=== PATIENT | female | born 1965 | race Caucasian/White ===

== ENCOUNTER → 2016-06-02 | Outpatient (CLI) | payer BC ==
[~2016-06-02] MED LIST: DAYPRO600 M1 PO; KEFLEX500 MG PO; MEDROL DOSEPAK4 MG PO
== END | disposition home or self-care (01) ==
LOC: RAD 13:15
DX: M79.672 Pain in left foot (principal)

== ENCOUNTER → 2016-06-14 | Outpatient (CLI) | payer BC | END | disposition home or self-care (01) | LOC: RAD 15:14 | DX: M79.672 Pain in left foot (principal) ==

== ENCOUNTER → 2016-12-15 | Outpatient (CLI) | payer OTHER | END | disposition home or self-care (01) | LOC: US 12-14 13:30 | DX: I65.23 Occlusion and stenosis of bilateral carotid arteries (principal) ==

== ENCOUNTER → 2016-12-21 | Outpatient (CLI) | payer OTHER | END | disposition home or self-care (01) | LOC: CARD 07:15 | DX: I51.7 Cardiomegaly (principal); R00.2 Palpitations ==

== ENCOUNTER → 2018-06-07 | Day surgery (SDC) | payer OTHER | END | disposition home or self-care (01) | LOC: SDC 06-04 09:30 | DX: Z12.11 Encounter for screening for malignant neoplasm of colon (principal); Z53.8 Procedure and treatment not carried out for other reasons ==

== ENCOUNTER → 2018-12-13 | Day surgery (SDC) | payer OTHER ==
[~2018-12-13] VITALS: Ht 170.1 cm; Wt 89.8 kg
[~2018-12-13] MED LIST changes: +CLARITIN-D 121 EACH PO; +VITAMIN D10000 UNIT PO
--- NOTE | ~2018-12-13 | PROC NOTE ---
[place], [place] PROCEDURE NOTE NAME: MIRLANDE KO UNIT #: [id number] ROOM: DOCTOR: DIALLO GUTIERREZ MD BIRTHDATE: [birth year] DOS: 12/13/2018 PREOPERATIVE DIAGNOSIS: Screening examination. POSTOPERATIVE DIAGNOSES: Sigmoid diverticulosis, sigmoid polyp (25 cm). PROCEDURE: Flexible sigmoidoscopy. ENDOSCOPIST: Diallo Gutierrez MD [facility] SUPERVISOR: YASIR. ANESTHESIA: MAC. INDICATIONS: This is a 53-year-old lady who is here for a screening colonoscopy. The procedure and its complications were explained to the patient in detail preoperatively. Complications that were discussed included but were not limited to, bleeding, colon perforation, and missed lesions. She agreed to proceed. DESCRIPTION OF PROCEDURE: After identifying the patient, the patient was brought to the endoscopy suite and placed in the left lateral position. After time-out procedure was called, IV sedation was administered by the anesthesia team and a digital rectal exam was performed. This was within normal limits. An adult colonoscope was now introduced into the anal canal and advanced sequentially into the rectum, sigmoid colon right up to 50 cm from the anal verge. Despite multiple attempts, the scope could not be advanced beyond this point. This was also tried after keeping the patient in the supine position. In order to avoid any complications, the scope was withdrawn. During the procedure of the withdrawal, sigmoid diverticulosis was identified as well as a small polyp at 25 cm, which was removed with the help of a biopsy forceps and sent for histopathological diagnosis. After hemostasis was confirmed, the scope was withdrawn. Based on these findings, the patient is recommended to have a barium enema in the near future and also possibly another colonoscopy in 3-5 years in order to complete the procedure and also to evaluate the polyp that was removed. These findings were discussed with the patient's family in the recovery room. [place], [place] PROCEDURE NOTE NAME: MIRLANDE KO Jey UNIT #: [id number] ROOM: DOCTOR: DIALLO GUTIERREZ MD BIRTHDATE: [birth year] Diallo Gutierrez MD CM:PROCNOTE:PROCEDURE NOTE [id number] DIALLO GUTIERREZ MD
[2018-12-13 07:25] VITALS: BP 114/75
[2018-12-13 08:48] VITALS: BP 137/80
[2018-12-13 08:58] VITALS: BP 145/79
[2018-12-13 09:18] VITALS: BP 139/83
== END | disposition home or self-care (01) ==
LOC: SDC 12-10 10:15
DX: Z12.11 Encounter for screening for malignant neoplasm of colon (principal); K63.5 Polyp of colon; K57.30 Diverticulosis of large intestine without perforation or abscess without bleeding; Z98.890 Other specified postprocedural states; Z90.711 Acquired absence of uterus with remaining cervical stump; Z88.2 Allergy status to sulfonamides

== ENCOUNTER → 2020-02-12 | Outpatient (CLI) | payer OTHER | END | disposition home or self-care (01) | LOC: CARD 02-06 12:00 | PROVIDERS: ATTEND Family Medicine | DX: I05.8 Other rheumatic mitral valve diseases (principal) ==

== ENCOUNTER → 2020-08-07 | Outpatient (CLI) | payer OTHER | END | disposition home or self-care (01) | LOC: RAD 11:36 | PROVIDERS: ATTEND Family Medicine | DX: M79.642 Pain in left hand (principal) ==

== ENCOUNTER → 2021-03-30 | Outpatient (CLI) | payer OTHER | LOC: CT 07:43 | PROVIDERS: ATTEND Family Medicine | DX: R10.9 Unspecified abdominal pain (principal); Z90.710 Acquired absence of both cervix and uterus ==

== ENCOUNTER → 2021-04-22 | Day surgery (SDC) | payer OTHER ==
[2021-04-19 13:08] VITALS: BP 133/66
[~2021-04-22] VITALS: Ht 170.1 cm; Wt 90.7 kg
[~2021-04-22] MED LIST changes: +COLACE100 MG PO; +CRESTOR20 M1 PO; +PERCOCET 5-3251 EACH PO; +ZOFRAN4 MG PO
[2021-04-22 09:52] VITALS: BP 124/80
[2021-04-22 13:05] VITALS: BP 116/56
[2021-04-22 13:20] VITALS: BP 111/59
[2021-04-22 13:35] VITALS: BP 134/77
[2021-04-22 13:48] VITALS: BP 128/72
[2021-04-22 14:05] VITALS: BP 134/73
== END | disposition home or self-care (01) ==
LOC: SDC 04-19 12:30
PROVIDERS: ATTEND Surgery
DX: R10.11 Right upper quadrant pain (principal); K36 Other appendicitis; Z90.89 Acquired absence of other organs; Z90.710 Acquired absence of both cervix and uterus; Z88.2 Allergy status to sulfonamides; Z79.899 Other long term (current) drug therapy; Z20.822 Contact with and (suspected) exposure to COVID-19

== ENCOUNTER → 2021-05-19 | Outpatient (CLI) | payer OTHER | END | disposition home or self-care (01) | LOC: RAD 09:49 | PROVIDERS: ATTEND Orthopaedic Surgery | DX: M25.511 Pain in right shoulder (principal); M24.811 Other specific joint derangements of right shoulder, not elsewhere classified ==

== ENCOUNTER → 2022-08-23 | Outpatient (CLI) | payer OTHER | END | disposition home or self-care (01) | LOC: RAD 13:24 | PROVIDERS: ATTEND Family Medicine | DX: M25.561 Pain in right knee (principal); M25.562 Pain in left knee ==

== ENCOUNTER → 2022-09-26 | Outpatient (CLI) | payer OTHER | END | disposition home or self-care (01) | LOC: MAMMO 01:41 | PROVIDERS: ATTEND Family Medicine | DX: Z12.31 Encounter for screening mammogram for malignant neoplasm of breast (principal); N64.9 Disorder of breast, unspecified; D24.2 Benign neoplasm of left breast ==

== ENCOUNTER → 2022-11-07 | Outpatient (CLI) | payer OTHER | END | disposition home or self-care (01) | LOC: RAD 10:42 | PROVIDERS: ATTEND Orthopaedic Surgery | DX: M17.0 Bilateral primary osteoarthritis of knee (principal); M25.462 Effusion, left knee; M25.461 Effusion, right knee; M79.89 Other specified soft tissue disorders; M25.572 Pain in left ankle and joints of left foot; M25.571 Pain in right ankle and joints of right foot ==

== ENCOUNTER 2022-12-07 06:14 | Emergency (ER) | payer OTHER ==
[~2022-12-07] VITALS: Ht 170.1 cm; Wt 101.6 kg
[2022-12-07 06:40] LABS: BASO % 0.4 % (0.0-1.0); EOS # 1.2 10*3/uL (0.0-0.4); EOS % 11.4 % (1.0-4.0); HEMATOCRIT 39.4 % (37.0-47.0); LYMPH # 2.4 10*3/uL (1.3-4.4); LYMPH % 23.6 % (27.0-41.0); MEAN CELL VOLUME 89.5 fl (81.0-99.0); MEAN CORPUSCULAR HGB 29.1 pg (27.0-31.0); MEAN CORPUSCULAR HGB CONC 32.5 g/dl (33.0-37.0); MEAN PLATELET VOLUME 8.9 fl (9.6-12.3); MONO # 0.8 10*3/uL (0.1-1.0); MONO % 7.5 % (3.0-9.0); NEUT # 5.7 10*3/uL (2.3-7.9); NEUT % 56.1 % (47.0-73.0); PLATELET COUNT AUTOMATED 330 10*3/uL (130-400); RED CELL DISTRI WIDTH 12.8 % (0-14.5); WHITE BLOOD COUNT 10.2 10*3/uL (4.8-10.8)
[2022-12-07 07:02] LABS: ALKALINE PHOSPHATASE 64 U/L (46-116); BUN 11 mg/dl (9-23); CHLORIDE 106 mmol/L (98-107); POTASSIUM 3.5 mmol/L (3.4-5.1); SGPT/ALT 17 U/L (10-49); TOTAL PROTEIN 5.9 gm/dL (6.0-8.0)
[2022-12-07] MEDS ORDERED: DULE1ARO1 INH (09:06)
== END 2022-12-07 10:30 | disposition home or self-care (01) ==
LOC: ED 06:14
PROVIDERS: Internal Medicine
DX: J06.9 Acute upper respiratory infection, unspecified (principal); Z88.2 Allergy status to sulfonamides; Z90.711 Acquired absence of uterus with remaining cervical stump; Z98.890 Other specified postprocedural states

== ENCOUNTER → 2022-12-19 | Outpatient (CLI) | payer OTHER ==
[~2022-12-19] MED LIST changes: +DULE1ARO1 INH
== END | disposition home or self-care (01) ==
LOC: CARD 00:57
PROVIDERS: ATTEND Family Medicine
DX: G45.9 Transient cerebral ischemic attack, unspecified (principal); R47.81 Slurred speech

== ENCOUNTER → 2022-12-21 | Outpatient (CLI) | payer OTHER | END | disposition home or self-care (01) | LOC: MRI 12-06 09:00 | PROVIDERS: ATTEND Family Medicine | DX: H74.8X1 Other specified disorders of right middle ear and mastoid (principal); G45.9 Transient cerebral ischemic attack, unspecified; R47.81 Slurred speech ==

== ENCOUNTER → 2022-12-31 | Outpatient (CLI) | payer OTHER | END | disposition home or self-care (01) | LOC: CT 00:52 | PROVIDERS: ATTEND Specialist | DX: J32.0 Chronic maxillary sinusitis (principal); J32.8 Other chronic sinusitis; J34.2 Deviated nasal septum; H74.8X3 Other specified disorders of middle ear and mastoid, bilateral ==

== ENCOUNTER → 2024-06-20 | Outpatient (CLI) | payer OTHER | END | disposition home or self-care (01) | LOC: MAMMO 02:56 | PROVIDERS: ATTEND Family Medicine | DX: Z12.31 Encounter for screening mammogram for malignant neoplasm of breast (principal) ==